=== PATIENT | male | born 1950 | race Caucasian/White ===

== ENCOUNTER 2020-06-03 08:59 | Emergency (ER) | payer MEDICARE, OTHER ==
[~2020-06-03] VITALS: Ht 172.7 cm; Wt 97.5 kg
[~2020-06-03 08:59] MED LIST: LOSARTAN-HCTZ1 EAC2; MELOXICAM15 MG; SIMVASTATIN40 MG PO; TRAMADOL 50 MG
== END 2020-06-03 09:28 | disposition home or self-care (01) ==
LOC: ER 09:05
DX: U07.1 COVID-19 (principal)
CPT/HCPCS: 99283

== ENCOUNTER 2021-09-15 12:13 | Emergency (ER) | payer MEDICARE ==
[~2021-09-15] VITALS: Ht 172.7 cm; Wt 97.5 kg
[2021-09-15] MEDS ORDERED: KETOROLAC TROMETHAMINE 30 MG/ML VIAL IV STA (12:46)
[2021-09-15 13:00] LABS: BASOPHILS # (AUTO) 0.1 (0.0-0.1); BASOPHILS % 0.6 % (0.0-1.0); EOSINOPHILS # (AUTO) 0.1 (0.0-0.4); EOSINOPHILS % 0.8 % (0.0-6.0); HEMATOCRIT 43.2 % (38.2-49.6); HEMOGLOBIN 13.9 g/dL (14.0-18.0); LYMPHOCYTES # (AUTO) 1.3 (1.0-3.2); LYMPHOCYTES % 11.9 % (18.0-39.1); MEAN CORPUSCULAR HEMOGLOBIN 31.6 pg (28-32); MEAN CORPUSCULAR HGB CONC 32.2 g/dL (31-35); MEAN CORPUSCULAR VOLUME 98.2 fL (81-99); MONOCYTES # (AUTO) 0.7 (0.2-0.8); NEUTROPHILS # (AUTO) 8.3 (2.1-6.9); NEUTROPHILS % 79.2 % (38.7-80.0); PLATELET COUNT 268 x10e3/uL (140-360); RED CELL DISTRIBUTION WIDTH 12.7 % (11.7-14.4)
[2021-09-15] MEDS ORDERED: TAMSULOSIN HCL 0.4 MG CAP PO SCH (13:00)
[2021-09-15] MEDS ORDERED: SODIUM CHLORIDE 0.9% 1000ML 1,000 ML IV ONE (13:00)
[2021-09-15] MEDS ORDERED: ONDANSETRON HCL INJ 2MG/ML 2ML 2 MG/ML VIAL IV PRN (13:00)
[2021-09-15 13:11] LABS: ALBUMIN 4.3 g/dL (3.5-5.0); ALBUMIN/GLOBULIN RATIO 1.2 (0.8-2.0); ANION GAP 14.3 mmol/L (8-16); CALCIUM 9.5 mg/dL (8.4-10.2); CREATININE, SERUM 1.07 mg/dL (0.72-1.25); POTASSIUM 4.3 mmol/L (3.5-5.1)
[2021-09-15] MEDS ORDERED: FLOMAX0.4 MG PO (13:37)
[2021-09-15] MEDS ORDERED: ONDANSETRON ODT4 MG PO (13:37)
[2021-09-15] MEDS ORDERED: KETOROLAC TROME10 MG PO (13:37)
[2021-09-15] MEDS ORDERED: ACETAMINOPHEN-1 EAC4 PEG (13:38)
[2021-09-15 13:42] LABS: CLARITY,URINE CLEAR (CLEAR); COLOR,URINE YELLOW (YELLOW); KETONES,URINE NEGATIVE (NEGATIVE); LEUKOCYTE ESTERASE ,URINE NEGATIVE (NEGATIVE); NITRITE,URINE NEGATIVE (NEGATIVE); PROTEIN,URINE DIPSTICK NEGATIVE (NEGATIVE); URINE UROBILINOGEN 0.2 mg/dL (0.2 - 1)
[2021-09-15] MEDS ORDERED: ONDANSETRON HCL INJ 2MG/ML 2ML 2 MG/ML VIAL IV STA (13:43)
[2021-09-15] MEDS ORDERED: Morphine 4mg Syringe 4 MG/ML INJ IV STA (13:43)
[2021-09-15 13:55] LABS: BACTERIA,URINE FEW /HPF; EPITHELIAL CELLS,URINE RARE /LPF; RBC,URINE 0-5 /HPF (0-5); WBC,URINE (MAN) 0-5 /HPF (0-5)
[2021-09-15 14:06] VITALS: BP 127/83
== END 2021-09-15 14:15 | disposition home or self-care (01) ==
LOC: ER 12:40
DX: R10.32 Left lower quadrant pain (principal); N13.2 Hydronephrosis with renal and ureteral calculous obstruction; K57.90 Diverticulosis of intestine, part unspecified, without perforation or abscess without bleeding
CPT/HCPCS: 36415; 74176; 80053; 81001; 85025; 99284; J1885; J2270; J2405; J7030

== ENCOUNTER 2022-04-07 15:21 | Emergency (ER) | payer MEDICARE ==
[~2022-04-07] VITALS: Ht 172.7 cm; Wt 97.5 kg
[~2022-04-07 15:21] MED LIST changes: +ACETAMINOPHEN-1 EAC4 PEG; +FLOMAX0.4 MG PO; +KETOROLAC TROME10 MG PO; +ONDANSETRON ODT4 MG PO
[2022-04-07] MEDS ORDERED: MEDROL4 M2 PO (16:11)
[2022-04-07] MEDS ORDERED: VENTOLIN HFA18 GM INH (16:11)
== END 2022-04-07 16:15 | disposition home or self-care (01) ==
LOC: ER 15:40
DX: R50.9 Fever, unspecified (principal); U07.1 COVID-19; R05.9 Cough, unspecified; I10 Essential (primary) hypertension; E78.5 Hyperlipidemia, unspecified; R94.31 Abnormal electrocardiogram [ECG] [EKG]
CPT/HCPCS: 93005; 99283